=== PATIENT | female | born 2005 | race Two or more races ===

== ENCOUNTER 2024-06-11 21:45 | Emergency (ER) | payer MEDICAID, SELFPAY ==
[2024-06-11 21:45] VITALS: BMI 16.5
[2024-06-11 22:25] VITALS: BP 109/72; PULSE 71; RESP 18; TEMP 37.1; O2SAT 98
--- NOTE | 2024-06-11 22:31 | XR_ITS ---
Examination: CT brain head without contrast. 2-D sagittal coronal reconstructions Date and time of exam:June 11, 2024 10:42 PM INDICATIONS: Syncopal episodes of fainting and weakness today CTDI: vol (mGy):42.40 DLP: (mGycm):830 Technique: Multiple CT axial sections of the brain have been obtained, 5 mm slice thickness. Contrast has not been administered. 2-D sagittal, coronal reconstructions have been obtained Low dose protocols were performed. One or more of the following dose reduction techniques were used; automated exposure control, adjustment of the mA and/or KV according to patient size, use of iterative reconstruction technique. Findings: No significant ventricular enlargement. Intra-axial or extra-axial hemorrhage density is not seen. No mass effect or midline shift Basal cisterns are not remarkable. Fourth ventricle is midline. Cranial vault intact. Impression: Negative for acute hemorrhage, mass effect or midline shift Clinical correlation advised and follow up accordingly
--- NOTE | 2024-06-11 22:32 | PD.EDRME ---
Rapid Medical Screening Exam RME Arrival date/time: 06/11/24 21:45 18-year-old female past medical history of iron deficiency presents emergency department complaining of fainting episodes that been ongoing for 3 months. Chief Complaint: General Adult/Misc Complain Time Seen by Provider: 06/11/24 22:03 Vital signs: Vital Signs Temperature 98.8 F 06/11/24 22:25 Pulse Rate 71 06/11/24 22:25 Respiratory Rate 18 06/11/24 22:25 Blood Pressure 109/72 06/11/24 22:25 Pulse Oximetry (%) 98 06/11/24 22:25 Oxygen Delivery Method Room Air 06/11/24 22:25 Vital signs reviewed by provider: Yes
--- NOTE | 2024-06-11 22:33 | EKG_ITS ---
[facility] Test Date: 2024-06-11 Pat Name: LUIS SOLO Department: Room: - Gender: Female Instructional Design Specialist: : [id number] Requested By: Oswaldo Pineda ([facility]) Order Number: [id number] Reading MD: Oswaldo Pineda ([facility]) Measurements Intervals Elaine Rate: 57 P: 39 ID: [id number] QRS: 35 QRSD: 80 T: 58 QT: 371 QTc: 363 Interpretive Statements SINUS BRADYCARDIA LOW QRS VOLTAGE IN PRECORDIAL LEADS [QRS DEFLECTION < 1.0 mV IN CHEST LEADS] POSSIBLE RIGHT VENTRICULAR CONDUCTION DELAY [RSR (QR) IN V1/V2] No previous ECG available for comparison /store/S0/[id number].pdf
[2024-06-11 23:18] LABS: Collection Type, Urine Clean Catch
[2024-06-11 23:26] LABS: Basophils # (Auto) 0.1 Thou/mm3 (0.0-0.2); Basophils % (Auto) 1 % (0-2.5); Eosinophils # (Auto) 0.1 Thou/mm3 (0.0-0.5); Eosinophils % (Auto) 2 % (0-10); Hematocrit 36.1 % (36.0-46.0); Hemoglobin 12.5 g/dL (12.0-16.0); Immature Granulocytes % (Auto) 0 % (0-0); Immature Granulocytes Auto 0.01 Thou/mm3 (0.00-0.00); Lymphocytes # (Auto) 2.3 Thou/mm3 (1.0-4.8); Lymphocytes % (Auto) 30 % (10-50); Mean Corpuscular HGB Conc 34.6 g/dl (31.0-37.0); Mean Corpuscular Volume 95 fL (80-100); Monocytes # (Auto) 0.4 Thou/mm3 (0.0-0.8); Monocytes % (Auto) 5 % (0-12); Neutrophils # (Auto) 4.6 Thou/mm3 (1.8-7.7); Neutrophils % (Auto) 62 % (37-80); Nucleated Red Blood Cell % 0 /100 WBC (0); Platelet Count 423 Thou/mm3 (140-440); RDW Standard Deviation 41.9 fL (36.4-46.3); Red Blood Count 3.79 Miln/mm3 (4.00-5.20); White Blood Count 7.4 Thou/mm3 (4.5-11.0)
[2024-06-11 23:28] LABS: Alanine Aminotransferase 8 U/L (10-49); Albumin, Serum 4.8 gm/dL (3.5-5.0); Albumin/Globulin Ratio 1.6 (1.2-2.2); Alkaline Phosphatase 60 U/L (46-116); Anion Gap 8 (7-16); Aspartate Amino Transferase 24 U/L (0-34); BUN/Creatinine Ratio 15 Ratio (12-20); Bilirubin,Total 0.5 mg/dL (0.3-1.2); Blood Urea Nitrogen 12 mg/dL (9-23); Calcium 10.5 mg/dL (8.3-10.6); Calcium (Corrected) 10.5 mg/dL (8.5-10.1); Carbon Dioxide 27.8 mMol/L (20.0-31.0); Chloride 103 mMol/L (98-107); Creatinine (Component) 0.8 mg/dL (0.6-1.3); Estimated Creatinine Clearance 74.7 mL/min (>60); Glucose 94 mg/dL (74-106); Osmolality,Calculated 277 (275-295); Potassium 4.1 mMol/L (3.4-5.1); Sodium 139 mMol/L (136-145); Total Protein 7.8 gm/dL (5.7-8.2); eGFR > 60 See Note
[2024-06-11 23:29] LABS: HCG,Qualitative Serum Negative
[2024-06-11 23:40] LABS: Bilirubin,Urine Negative (Negative); Blood,Urine Negative (Negative); Clarity,Urine Clear (Clear/Hazy); Color,Urine Colorless (Lt Yel-Yel); Culture Indicated,Urine Not Indicated; Glucose, Urine Negative (Negative); Ketones,Urine Negative (Negative); Leukocyte Esterase,Urine Negative (Negative); Nitrite,Urine Negative (Negative); Protein,Urine Negative (Neg - Trace); RBC,Urine 1 /hpf (0-3); Specific Gravity,Urine 1.006 (1.001-1.035); Squamous Epithelial Cell,Urine < 1 /hpf (0-5); Urobilinogen,Urine Negative mg/dL (0.0-1.0); WBC,Urine < 1 /hpf (0-5)
--- NOTE | 2024-06-12 00:19 | EDNOTE_ITS ---
ED General RME/HPI General Chief complaint: General Adult/Misc Complain Stated complaint: WEAK, KEEP FAINTING Time Seen by Provider: 06/11/24 22:03 Source: patient and family Arrival date/time: 06/11/24 21:45 18-year-old female past medical history of iron deficiency presents emergency department complaining of fainting episodes that been ongoing for 3 months. Patient denies any fever, chills, diarrhea, nausea vomiting, palpitations, chest pain, or any other associated symptoms. Mode of arrival: wheelchair Limitations: no limitations RME / HPI RME / HPI narrative: 06/11/24 21:45 18-year-old female past medical history of iron deficiency presents emergency department complaining of fainting episodes that been ongoing for 3 months. Related Data Allergies Allergy/AdvReac Type Severity Reaction Status Date / Time No Known Allergies Allergy Unknown Verified 06/11/24 21:47 Review of Systems Review of Systems Systems Reviewed: All systems reviewed, normal except as documented Constitutional Constitutional: Reports system reviewed and no additional complaints, except as documented, Denies body ache(s), Denies chills, Denies fever(s) and Reports other (Fainting) Eyes Eyes: Reports system reviewed and no additional complaints, except as documented and Denies change in vision ENT Ears, Nose, Mouth, and Throat: Reports system reviewed and no additional complaints, except as documented, Denies disequilibrium, Denies dizziness, Denies sore throat and Denies vertigo Cardiovascular Cardiovascular: Reports system reviewed and no additional complaints, except as documented, Denies chest pain and Denies dyspnea Respiratory Respiratory: Reports system reviewed and no additional complaints, except as documented, Denies chest congestion, Denies cough and Denies dyspnea Gastrointestinal Gastrointestinal: Reports system reviewed and no additional complaints, except as documented, Denies abdominal pain, Denies nausea and Denies vomiting Musculoskeletal Musculoskeletal: Reports system reviewed and no additional complaints, except as documented, Denies abnormal gait and Denies arthralgias Integumentary/Breasts Skin/Breast: Reports system reviewed and no additional complaints, except as documented, Denies erythema, Denies rash and Denies wounds Neurologic Neurologic: Reports system reviewed and no additional complaints, except as documented, Denies abnormal gait, Denies disequilibrium, Denies dizziness and Denies vertigo Past Medical History Social History SMOKING STATUS: Never smoker ED Exam General Limitations: Present no limitations General appearance: Present alert and in no apparent distress Head Head exam: Present atraumatic Eye Eye exam: Present normal appearance, PERRL and EOMI ENT ENT exam: Present normal exam, normal oropharynx and mucous membranes moist Neck Neck exam: Present normal inspection, full ROM and trachea midline Chest Chest inspection: Present normal inspection and symmetric chest wall rise Respiratory Respiratory exam: Present normal lung sounds bilaterally Cardiovascular Cardiovascular exam: Present regular rate, normal rhythm and normal heart sounds Abdominal Exam Abdominal exam: Present soft and normal bowel sounds Extremities Exam Extremities exam: Present normal inspection and full ROM Back Exam Back exam: Present normal inspection and full ROM Neurological Exam Neurological exam: Present alert, oriented X3 and CN II-XII intact Psychiatric Psychiatric exam: Present normal affect and normal mood Skin Skin exam: Present warm, dry, intact and normal color Course Quality Measures none Orders Category Date Time Status Bedside Influenza A&B Antigen Test NOW Care 06/11/24 22:31 Completed EKG (ED ONLY) *Do not use* NOW Care 06/11/24 22:33 Completed Orthostatic Vitals X1 Care 06/12/24 00:[address] head/brain wo con Stat Exams 06/11/24 22:31 Completed EKG (ED Only) Stat Exams 06/11/24 22:33 Draft CBC Stat Lab 06/11/24 22:49 Completed CMP [Comprehensive Metabolic Panel] Stat Lab 06/11/24 22:49 Completed Free T4 (Free Thyroxine) Stat Lab 06/11/24 22:49 Completed HCG,Qualitative Serum Stat Lab 06/11/24 22:49 Completed Thyroid Stimulating Hormone Stat Lab 06/11/24 22:49 Completed Urinalysis, C/S if Indicated Stat Lab 06/11/24 23:08 Completed Vital Signs Vital signs: Vital Signs Temperature 98.8 F 06/11/24 22:25 Pulse Rate 71 06/11/24 22:25 Respiratory Rate 18 06/11/24 22:25 Blood Pressure 109/72 06/11/24 22:25 Pulse Oximetry (%) 98 06/11/24 22:25 Oxygen Delivery Method Room Air 06/11/24 22:25 98% room air within normal limits Procedures -ED EKG Interpretation #1: Date of EK06/11/24 Time of EK:57 Rate: 57 Interpretation: Interpreted by me EKG Impression: Normal sinus rhythm, No acute ST-T changes, No ectopy, No ischemic changes and Normal QRS MDM Patient data External records reviewed:: [facility] previous records Clinical information provided by:: patient and parent Social determinants that could affect healthcare access:: none Patient has the following chronic illnesses:: See chart How is presenting disease/condition affected by chronic disease/condition?: u neffected by Evaluation data The following diagnostics were reviewed and interpreted by me:: lab results, radiology exam(s) and EKG tracing(s) Lab and/or radiology exams considered but not ordered:: Ordered Interpretation Summary: Interpreted by me Medications Medications considered but not ordered:: N/A Medication administrations:: N/A Consultations Consultation(s) initiated? (list below): No Diagnosis Differential Diagnosis ED Complaint MDM: Anemia, arrhythmia, dehydration, hypothyroid Most likely diagnosis given after review of the tests above:: Fainting spell Admission Indicated Admission indicated?: not indicated Explain why admission is indicated or not indicated:: No admission criteria Admission Request Was there a request for admission?: No Disposition Plan Disposition Plan: Discharge Discharge Attestation Discharge Attestation: The patient and all family members were given an opportunity to ask questions and understood the discharge instructions. Discharge instructions specifically effects, indications for sooner follow up or return to the emergency department, and the expected course of current diagnosis. Patient condition: Stable Medical Decision Making MDM Narrative MDM Narrative: 18-year-old female past medical history of iron deficiency presents emergency department complaining of fainting episodes that been ongoing for 3 months. Patient denies any fever, chills, diarrhea, nausea vomiting, palpitations, chest pain, or any other associated symptoms. CBC was unremarkable for any leukocytosis or anemia. CMP was unremarkable. Urinalysis also unremarkable. TSH and free T4 were within normal limits. EKG sinus bradycardia. CT head was unremarkable. Instructed patient to drink plenty of fluids and stay hydrated and change positions from sitting to standing or laying to standing slowly to avoid any falls. Instructed to have close follow-up with primary care provider in and return to emergency department for any worsening symptoms or as needed. Differential Diagnosis Differential Diagnosis: Anemia, arrhythmia, dehydration, hypothyroid Lab Data 06/11/24 22:49 06/11/24 22:49 Labs: Lab Results 06/11/24 06/11/24 Range/Units 22:49 23:08 WBC 7.4 (4.5-11.0) Thou/mm3 RBC 3.79 L (4.00-5.20) Miln/mm3 Hgb 12.5 (12.0-16.0) g/dL Hct 36.1 (36.0-46.0) % MCV 95 (80-100) fL MCH 33.0 (25.0-35.0) pg MCHC 34.6 (31.0-37.0) g/dl RDW Std Deviation 41.9 (36.4-46.3) fL Plt Count 423 (140-440) Thou/mm3 Neut % (Auto) 62 (37-80) % Lymph % (Auto) 30 (10-50) % [place] % (Auto) 5 (0-12) % Eos % (Auto) 2 (0-10) % Baso % (Auto) 1 (0-2.5) % Neut # (Auto) 4.6 (1.8-7.7) Thou/mm3 Lymph # (Auto) 2.3 (1.0-4.8) Thou/mm3 [place] # (Auto) 0.4 (0.0-0.8) Thou/mm3 Eos # (Auto) 0.1 (0.0-0.5) Thou/mm3 Baso # (Auto) 0.1 (0.0-0.2) Thou/mm3 Immature Gran # (Auto) 0.01 H (0.00-0.00) Thou/mm3 Absolute Nucleated RBC 0.00 (0.00-0.00) Thou/mm3 Immature Gran % 0 (0-0) % Nucleated RBC % 0 (0) /100 WBC Sodium 139 (136-145) mMol/L Potassium 4.1 (3.4-5.1) mMol/L Chloride 103 (98-107) mMol/L Carbon Dioxide 27.8 (20.0-31.0) mMol/L Anion Gap 8 (7-16) BUN 12 (9-23) mg/dL Creatinine 0.8 (0.6-1.3) mg/dL Estim Creat Clear Calc 74.7 (>60) mL/min eGFR > 60 (60 - ) See Note BUN/Creatinine Ratio 15 (12-20) Ratio Glucose 94 (74-106) mg/dL Calculated Osmolality 277 (275-295) Calcium 10.5 (8.3-10.6) mg/dL Corrected Calcium 10.5 H (8.5-10.1) mg/dL Total Bilirubin 0.5 (0.3-1.2) mg/dL AST 24 (0-34) U/L ALT 8 L (10-49) U/L Alkaline Phosphatase 60 (46-116) U/L Total Protein 7.8 (5.7-8.2) gm/dL Albumin 4.8 (3.5-5.0) gm/dL Globulin 3.0 (2.3-3.5) gm/dL Albumin/Globulin Ratio 1.6 (1.2-2.2) TSH 2.35 (0.55-4.78) uIU/mL Free T4 1.41 (0.89-1.76) ng/dL HCG, Qual Negative Ur Collection Type Clean Catch Urine Color Colorless A (Lt Yel-Yel) Urine Clarity Clear (Clear/Hazy) Urine pH 7.0 (5.0-7.0) Ur Specific [place] 1.006 (1.001-1.035) Urine Protein Negative (Neg - Trace) Urine Glucose (UA) Negative (Negative) Urine Ketones Negative (Negative) Urine Blood Negative (Negative) Urine Nitrite Negative (Negative) Urine Bilirubin Negative (Negative) Urine Urobilinogen (Auto) Negative (0.0-1.0) mg/dL Ur Leukocyte Esterase Negative (Negative) Urine RBC 1 (0-3) /hpf Urine WBC < 1 (0-5) /hpf Ur Squamous Epith Cells < 1 (0-5) /hpf Urine Bacteria None (None) Ur Culture Indicated? Not Indicated Discharge Plan Plan Patient Disposition: HOME (Self Care) Disposition Comment: Stable Prescriptions/Referrals Referrals: Lyn Fischer PA-C [Primary Care Provider] - In 1 week Problem List Clinical Impression: Fainting spell Patient/Caregiver Discharge Instructions Discharge Activity: activity as tolerated Education Materials: Orthostatic Hypotension, Dizziness Balance Probs Fainting, ED Fainting, Uncertain Cause Additional Instructions: Drink plenty of fluids and get plenty of rest. Follow-up with your primary care provider in 2 to 3 days. Make sure to change positions slowly and and stay hydrated. Return to emergency department for any worsening symptoms or as needed. Print Language: [place] Stand Alone Forms: Bethanie Award Info., Patient Portal Info Letter PA/CONTROL ROOM HELPER Supervising Physician PA/CONTROL ROOM HELPER Supervising Physician: Dr. Ramsey
[2024-06-12 00:21] VITALS: BP 120/76; BP 123/68; BP 151/99; PULSE 64; PULSE 72
[2024-06-12 00:55] LABS: Free T4 (Free Thyroxine) 1.41 ng/dL (0.89-1.76); Thyroid Stimulating Hormone 2.35 uIU/mL (0.55-4.78)
== END 2024-06-12 00:51 | disposition home or self-care (01) ==
PROVIDERS: Emergency Provider Emergency Medicine; PCP Physician Assistant
DX: R55 Syncope and collapse (principal); R53.1 Weakness; R00.1 Bradycardia, unspecified
CPT/HCPCS: 36415; 70450; 80053; 81001; 84439; 84443; 84703; 85025; 87400; 93005; 99284